=== PATIENT | female | born 2000 | race Caucasian/White ===

== ENCOUNTER 2020-06-27 21:47 | Emergency (ER) | payer MEDICAID ==
[2020-06-27] MEDS ORDERED: diphenhydrAMINE 25 MG Cap PO ONE (22:22)
--- NOTE | 2020-06-27 22:28 | EDM.PDOC ---
ED HPI GENERAL MEDICAL PROBLEM - General Chief Complaint: Allergic Reaction Stated Complaint: REACTION TO DUCK EGGS Time Seen by Provider: 06/27/20 22:10 Source of Information: Reports: Patient, Family, Old Records, RN History Limitations: Reports: No Limitations - History of Present Illness INITIAL COMMENTS - FREE TEXT/NARRATIVE: 19 yo female at a fried duck egg tonight and shortly after that had some mild throat pain a mild change in her voice. No hives or trouble breathing. Took Benedryl 50 mg at home and vomited it up shortly after. Was convinced to come into the ER by the nurse they talked to at the help line they called. Is pretty much asymptomatic now. They do have more Benedryl at home if needed. Onset: Today, Sudden Onset Date: 06/27/20 Duration: Minutes:, Resolved Prior to Arrival Location: Reports: Neck Quality: Reports: Other (mild tightness) Severity: Mild Improves with: Reports: Medication, Other (time) Worsens with: Reports: Other (? duck eggs) Context: Reports: Other (See HPI) Associated Symptoms: Reports: No Other Symptoms Treatments [employer]ING [employer]IST: Reports: Other (see below) (Benedryl) Throat Pain Score (Numeric/FACES): 3 Upper Abdominal Pain Score (Numeric/FACES): 8 - Related Data Allergies Allergy/AdvReac Type Severity Reaction Status Date / Time No Known Allergies Allergy Verified 06/27/20 22:03 Home Meds: Home Meds NK [No Known Home Meds] 02/27/14 [History] Past Medical History - Past Health History Medical/Surgical History: Denies Medical/Surgical History HEENT History: Reports: Impaired Vision Social & Family History - Tobacco Use Tobacco Use Status *Q: Never Tobacco User - Caffeine Use Caffeine Use: Reports: Soda - Recreational Drug Use Recreational Drug Use: No ED ROS ALLERGIC REACTION - Review of Systems Review Of Systems: See Below Constitutional: Reports: No Symptoms HEENT: Reports: Throat Swelling (possibly). Denies: Rhinitis Respiratory: Reports: No Symptoms. Denies: Shortness of Breath, Wheezing Skin: Denies: Pruritis, Rash Neurological: Reports: No Symptoms ED EXAM GENERAL NO PERIP PULSE - Physical Exam Exam: See Below Exam Limited By: No Limitations General Appearance: Alert, WD/WN, No Apparent Distress, Obese Eye Exam: Bilateral Eye: Normal Inspection Ears: Normal External Exam, Normal Canal, Hearing Grossly Normal, Normal TMs Nose: Normal Inspection, No Blood Throat/Mouth: Normal Inspection, Normal Lips, Normal Oropharynx, Normal Voice, No Airway Compromise Head: Atraumatic, Normocephalic Neck: Normal Inspection Respiratory/Chest: No Respiratory Distress, Lungs Clear, Normal Breath Sounds, No Accessory Muscle Use. No: Wheezing Extremities: Normal Inspection Neurological: Alert, Oriented, CN II-XII Intact, Normal Cognition, No Motor/Sensory Deficits Psychiatric: Normal Affect, Normal Mood Skin Exam: Warm, Dry, Intact, Normal Color, No Rash Course - Vital Signs Last Recorded V/S: Last Vital Signs Temp 36.4 C 06/27/20 22:04 Pulse 72 06/27/20 22:04 Resp 16 06/27/20 22:04 BP 150/68 H 06/27/20 22:04 Pulse Ox 99 06/27/20 22:04 - Orders/Labs/Meds Orders: Active Orders 24 hr Category Date Time Status diphenhydrAMINE [Benadryl] Med 06/27/20 22:22 Once 50 mg PO ONETIME ONE Departure - Departure Time of Disposition: 22:27 Disposition: Home, Self-Care 01 Condition: Good Clinical Impression: Allergic reaction to egg - Discharge Information *PRESCRIPTION DRUG MONITORING PROGRAM REVIEWED*: Not Applicable *COPY OF PRESCRIPTION DRUG MONITORING REPORT IN PATIENT DARIUS: Not Applicable Referrals: Tahira Prather PA-C [Primary Care Provider] - Additional Instructions: Continue diphenhydramine 50 to 75 mg every 4-6 hrs as needed for allergy symptoms. Return if worse. Avoid duck eggs and eat chicken eggs or any egg with caution going forward. Sepsis Event Note (ED) - Evaluation Sepsis Screening Result: No Definite Risk - Focused Exam Vital Signs: Vital Signs Temp Pulse Resp BP Pulse Ox 06/27/20 22:04 36.4 C 72 16 150/68 H 99 06/27/20 22:01 36.4 C 72 16 150/68 H 99 - My Orders Last 24 Hours: My Active Orders 06/27/20 22:22 diphenhydrAMINE [Benadryl] 50 mg PO ONETIME ONE - Assessment/Plan Last 24 Hours: My Active Orders 06/27/20 22:22 diphenhydrAMINE [Benadryl] 50 mg PO ONETIME ONE
== END 2020-06-27 22:37 | disposition home or self-care (01) ==
LOC: JP.ED 21:47
DX: T78.1XXA Other adverse food reactions, not elsewhere classified, initial encounter (principal); Z91.012 Allergy to eggs
CPT/HCPCS: 99283; A9270

== ENCOUNTER 2022-12-27 11:44 | Emergency (ER) | payer MEDICAID ==
[2022-12-27] MEDS ORDERED: Ibuprofen 400 MG Tab PO ONE (12:31)
== END 2022-12-27 14:01 | disposition home or self-care (01) ==
LOC: JP.ED 11:44
DX: R07.89 Other chest pain (principal)
CPT/HCPCS: 36415; 84484; 85651; 93005; 99285; A9270; 93010; 99283

== ENCOUNTER 2023-11-28 09:28 | Day surgery (SDC) | payer MEDICAID ==
[~2023-11-28 09:28] MED LIST: Midazolam 1 MG/ML 2 ML SDV ONE; Propofol 200 MG/20 ML SDV ONE; fentaNYL 50 MCG/ML SDV ONE
[2023-11-28] MEDS: Lactated Ringers 1,000 ML IV SCH (10:30)
== END 2023-11-28 11:46 | disposition home or self-care (01) ==
LOC: JP.SDS 09:28
PROVIDERS: ATTEND Student in an Organized Health Care Education/Training Program
DX: K29.50 Unspecified chronic gastritis without bleeding (principal); K21.9 Gastro-esophageal reflux disease without esophagitis; E66.9 Obesity, unspecified; Z68.41 Body mass index [BMI] 40.0-44.9, adult; Z79.899 Other long term (current) drug therapy
CPT/HCPCS: 43239; 88305; J2250; J2704; J3010; J7120

== ENCOUNTER 2023-12-02 05:53 | Day surgery (SDC) | payer MEDICAID ==
[2023-12-02] MEDS: Acetaminophen 500 MG Tab PO ONE (06:01)
[2023-12-02] MEDS: Indocyanine Green 25 MG SDV IV ONE (06:56)
[2023-12-02] MEDS: Sodium Chloride 0.9% 1,000 ML IV SCH (06:57)
[2023-12-02] MEDS ORDERED: fentaNYL 250 MCG/5 ML SDV ONE ×2 (07:21→08:20)
[2023-12-02] MEDS ORDERED: Ondansetron 4 MG/2 ML SDV ONE (07:26)
[2023-12-02] MEDS ORDERED: Neostigmine Methylsulfate 10 MG/10 ML MDV ONE (07:26)
[2023-12-02] MEDS ORDERED: Glycopyrrolate 0.2 MG/ML 5 ML MDV ONE (07:26)
[2023-12-02] MEDS ORDERED: Rocuronium 50 MG/5 ML Vial ONE (07:26)
[2023-12-02] MEDS ORDERED: Succinylcholine 200 MG/10 ML MDV ONE (07:26)
[2023-12-02] MEDS ORDERED: Dexamethasone 4 MG/ML SDV ONE (07:26)
[2023-12-02] MEDS ORDERED: Propofol 200 MG/20 ML SDV ONE (07:26)
[2023-12-02] MEDS: Scopalamine 1mg/3day Transdermal Patch TOP SCH (07:35)
[2023-12-02] MEDS: cefTRIAXone 2 GM in Sodium Chloride 0.9% 50 ML IV ONE (07:50)
[2023-12-02] MEDS: metroNIDAZOLE/Normal Saline 500 MG in Premix Bag 1 BAG IV ONE (08:10)
[2023-12-02] MEDS: Bupivacaine 0.5%/EPINEPHrine 1:200,000 50 ML MDV ONE (08:46)
[2023-12-02] MEDS ORDERED: Labetalol 20 MG/4 ML Syringe ONE (08:47)
[2023-12-02] MEDS ORDERED: Lactated Ringers 1,000 ML ONE (09:31)
[2023-12-02] MEDS ORDERED: fentaNYL 100 MCG/2 ML SDV ONE (09:36)
[2023-12-02] MEDS: Acetaminophen/HYDROcodone 325-5 MG Tab PO ONE (11:25)
== END 2023-12-02 14:02 | disposition home or self-care (01) ==
LOC: JP.SDS 05:53
PROVIDERS: ATTEND Student in an Organized Health Care Education/Training Program
DX: K81.1 Chronic cholecystitis (principal); K82.8 Other specified diseases of gallbladder; R73.03 Prediabetes; E66.01 Morbid (severe) obesity due to excess calories; Z68.41 Body mass index [BMI] 40.0-44.9, adult; E28.2 Polycystic ovarian syndrome; Z79.899 Other long term (current) drug therapy
CPT/HCPCS: 47563; 64488; 81025; A9270; J0330; J0696; J1100; J1836; J1920; J2405; J2704; J2710; J3010; J3490; J7030; J7120; 88304